=== PATIENT | female | born 1945 | race Caucasian/White ===

== ENCOUNTER 2020-10-02 17:33 | Inpatient (IN) ==
[2020-10-02] MEDS ORDERED: NS 0.9% 1000 ml BAG 1,000 ML IV ONE (17:59)
[2020-10-02 18:33] LABS: ABS Eosinophils 0.1 10^3/ul (0-0.6); ABS Lymphocytes 0.7 10^3/ul (1.0-4.8); ABS Monocytes 0.1 10^3/ul (0-0.8); ABS Neutrophils 12.9 10^3/ul (1.5-7.7); Eosinophil % 0.5 %; Hematocrit 36 % (35-47); Mean Corpuscular HGB Conc 34 g/dL (31-36); Mean Corpuscular Hemoglobin 29 pg (27-31); Mean Corpuscular Volume 85 fL (80-97); Mean Platelet Volume 6.6 fL (7.4-10.4); Platelet Count 431 10^3/uL (150-450); Red Blood Count 4.21 10^6 /uL (3.70-4.87); Red Cell Distribution Width 15 % (10-15); White Blood Count 13.8 10^3/uL (3.5-10.8)
[2020-10-02 18:40] LABS: INR 1.34 (0.82-1.09)
[2020-10-02 18:43] LABS: Albumin 2.9 g/dL (3.2-5.2); Albumin/Globulin Ratio 0.8 (1-3); C Reactive Protein 149.44 mg/L (<8.01); Calcium 8.5 mg/dL (8.6-10.3); EGFR African American 102.3 (>60); EGFR Non-African American 84.6 (>60); Globulin 3.6 g/dL (2-4); Potassium 3.7 mmol/L (3.5-5.0); Total Bilirubin 0.9 mg/dL (0.2-1.0); Total Protein 6.5 g/dL (6.4-8.9)
[2020-10-02] MEDS ORDERED: cefTRIAXone 2 GM ADDV.VIAL 2 GM in NS 0.9% 100 ml BAG 100 ML IVPB ONE (19:54)
[2020-10-02] MEDS ORDERED: Azithromycin 500 mg/250 ml NS 500 MG/250 ML BAG IVPB ONE (19:54)
[2020-10-02] MEDS ORDERED: Al Hydrox/Mg Hydrox/Simet LIQ 30 ML UDC PO PRN (20:46)
[2020-10-02] MEDS ORDERED: chlorproMAZINE 50 mg TAB (NF strength) PO PRN (20:51)
[2020-10-03] MEDS: Enoxaparin 40 MG/0.4 ML SYR SUBCUT SCH ×2 (00:29→20:14)
[2020-10-03] MEDS: Ondansetron 4 mg VIAL 2 MG/ML 2 ml VIAL IV PRN (01:02)
[2020-10-03] MEDS: guaiFENesin/CODIENE 100mg/10mg 5 ML UDC PO PRN (01:04)
[2020-10-03] MEDS: DOXYcycline 100 MG in NS 0.9% 250 ml 250 ML IVPB SCH ×2 (01:04→14:14)
[2020-10-03 01:13] LABS: Urine Appearance Clear; Urine Bilirubin Negative (Negative); Urine Blood 1+ (Negative); Urine Color Yellow; Urine Glucose Negative (Negative); Urine Ketones Negative (Negative); Urine Nitrite Negative (Negative); Urine Protein Negative (Negative); Urine Specific Gravity 1.014 (1.002-1.030); Urine Urobilinogen Positive (Negative)
[2020-10-03 01:16] LABS: Urine Bacteria Absent (Absent); Urine Red Blood Cell Trace(0-2/hpf) (Absent); Urine Squamous Epithelial Cell Present (Absent); Urine White Blood Cell Trace(0-5/hpf) (Absent)
[2020-10-03] MEDS ORDERED: Polyethylene Glycol 3350 17 GM PACKET PO PRN (04:42)
[2020-10-03] MEDS ORDERED: Magnesium Hydroxide LIQ 30 ML UDC PO PRN (04:42)
[2020-10-03 05:03] LABS: ABS Eosinophils 0.1 10^3/ul (0-0.6); ABS Lymphocytes 0.7 10^3/ul (1.0-4.8); ABS Monocytes 0.1 10^3/ul (0-0.8); ABS Neutrophils 13.9 10^3/ul (1.5-7.7); Eosinophil % 0.4 %; Hematocrit 33 % (35-47); Hemoglobin 11.1 g/dL (12.0-16.0); Lymphocyte % 4.6 %; Mean Corpuscular HGB Conc 34 g/dL (31-36); Mean Corpuscular Hemoglobin 29 pg (27-31); Mean Corpuscular Volume 85 fL (80-97); Mean Platelet Volume 6.8 fL (7.4-10.4); Platelet Count 368 10^3/uL (150-450); Red Blood Count 3.91 10^6 /uL (3.70-4.87); Red Cell Distribution Width 14 % (10-15); White Blood Count 14.8 10^3/uL (3.5-10.8)
[2020-10-03 05:23] LABS: Albumin 2.7 g/dL (3.2-5.2); Albumin/Globulin Ratio 0.8 (1-3); Calcium 8.2 mg/dL (8.6-10.3); EGFR African American 109.8 (>60); EGFR Non-African American 90.7 (>60); Globulin 3.2 g/dL (2-4); Potassium 3.4 mmol/L (3.5-5.0); Total Bilirubin 0.7 mg/dL (0.2-1.0); Total Protein 5.9 g/dL (6.4-8.9)
[2020-10-03] MEDS: Cholecalciferol (VIT D3) 1,000 unit TAB PO SCH (08:14)
[2020-10-03] MEDS: Senna TAB 8.6 mg TAB PO PRN (08:15)
[2020-10-03 09:27] LABS: Magnesium 1.4 mg/dL (1.9-2.7)
[2020-10-03] MEDS ORDERED: Magnesium Sulf 4 GM/100 ML IV 4,000 MG/100 ML BAG IVPB ONE (09:31)
[2020-10-03] MEDS: Budesonide NEB 0.5 MG/2 ML NEB.SOLN INH SCH (19:06)
[2020-10-03] MEDS: cefTRIAXone 2 GM ADDV.VIAL 2 GM in NS 0.9% 100 ml BAG 100 ML IV SCH (20:29)
[2020-10-03] MEDS ORDERED: cefTRIAXone 1 gm/50 mL NS BAG 1 GM/50 ML BAG IVPB SCH (21:00)
[2020-10-04] MEDS: guaiFENesin/CODIENE 100mg/10mg 5 ML UDC PO PRN ×2 (00:26→09:31)
[2020-10-04] MEDS: DOXYcycline 100 MG in NS 0.9% 250 ml 250 ML IVPB SCH ×2 (00:26→13:01)
[2020-10-04 06:19] LABS: ABS Eosinophils 0.2 10^3/ul (0-0.6); ABS Lymphocytes 0.4 10^3/ul (1.0-4.8); ABS Monocytes 0.1 10^3/ul (0-0.8); ABS Neutrophils 12.2 10^3/ul (1.5-7.7); Eosinophil % 1.6 %; Hematocrit 32 % (35-47); Hemoglobin 10.5 g/dL (12.0-16.0); Lymphocyte % 3.3 %; Mean Corpuscular HGB Conc 33 g/dL (31-36); Mean Corpuscular Hemoglobin 28 pg (27-31); Mean Corpuscular Volume 86 fL (80-97); Mean Platelet Volume 6.8 fL (7.4-10.4); Platelet Count 328 10^3/uL (150-450); Red Cell Distribution Width 15 % (10-15)
[2020-10-04 06:36] LABS: Calcium 8.4 mg/dL (8.6-10.3); EGFR African American 120.6 (>60); EGFR Non-African American 99.6 (>60); Magnesium 2.1 mg/dL (1.9-2.7); Potassium 3.5 mmol/L (3.5-5.0)
[2020-10-04] MEDS: Budesonide NEB 0.5 MG/2 ML NEB.SOLN INH SCH ×2 (07:26→19:19)
[2020-10-04] MEDS: Senna TAB 8.6 mg TAB PO PRN (09:32)
[2020-10-04] MEDS: Cholecalciferol (VIT D3) 1,000 unit TAB PO SCH (09:32)
[2020-10-04] MEDS ORDERED: guaiFENesin/CODIENE 100mg/10mg 5 ML UDC PO PRN (12:06)
[2020-10-04] MEDS: Enoxaparin 40 MG/0.4 ML SYR SUBCUT SCH (21:19)
[2020-10-04] MEDS: cefTRIAXone 2 GM ADDV.VIAL 2 GM in NS 0.9% 100 ml BAG 100 ML IV SCH (21:20)
[2020-10-05] MEDS: DOXYcycline 100 MG in NS 0.9% 250 ml 250 ML IVPB SCH ×2 (00:16→11:47)
[2020-10-05 06:10] LABS: ABS Eosinophils 0.2 10^3/ul (0-0.6); ABS Lymphocytes 0.4 10^3/ul (1.0-4.8); ABS Neutrophils 7.4 10^3/ul (1.5-7.7); Eosinophil % 2.8 %; Hematocrit 31 % (35-47); Hemoglobin 10.3 g/dL (12.0-16.0); Lymphocyte % 5.3 %; Mean Corpuscular HGB Conc 34 g/dL (31-36); Mean Corpuscular Hemoglobin 29 pg (27-31); Mean Corpuscular Volume 85 fL (80-97); Mean Platelet Volume 6.5 fL (7.4-10.4); Platelet Count 262 10^3/uL (150-450); Red Blood Count 3.57 10^6 /uL (3.70-4.87); Red Cell Distribution Width 15 % (10-15); White Blood Count 8.1 10^3/uL (3.5-10.8)
[2020-10-05 06:28] LABS: Albumin 2.7 g/dL (3.2-5.2); Albumin/Globulin Ratio 0.8 (1-3); C Reactive Protein 315.07 mg/L (<8.01); Calcium 8.5 mg/dL (8.6-10.3); EGFR African American 125.5 (>60); EGFR Non-African American 103.7 (>60); Globulin 3.6 g/dL (2-4); Potassium 3.6 mmol/L (3.5-5.0); Total Bilirubin 0.7 mg/dL (0.2-1.0); Total Protein 6.3 g/dL (6.4-8.9)
[2020-10-05] MEDS: Cholecalciferol (VIT D3) 1,000 unit TAB PO SCH (09:18)
[2020-10-05] MEDS: Budesonide NEB 0.5 MG/2 ML NEB.SOLN INH SCH ×2 (09:53→20:23)
[2020-10-05] MEDS: methylPREDNISolone SOD 40 mg/ml 1 ml VIAL IV SCH ×2 (10:35→22:31)
[2020-10-05] MEDS: Cefepime 2 GM in Dextrose 2 GM/50 ML BAG IV SCH ×2 (10:35→22:31)
[2020-10-05] MEDS: Enoxaparin 40 MG/0.4 ML SYR SUBCUT SCH (22:30)
[2020-10-06] MEDS: DOXYcycline 100 MG in NS 0.9% 250 ml 250 ML IVPB SCH ×2 (00:36→13:06)
[2020-10-06 06:53] LABS: ABS Lymphocytes 0.3 10^3/ul (1.0-4.8); ABS Neutrophils 3.8 10^3/ul (1.5-7.7); Eosinophil % 0.1 %; Hematocrit 30 % (35-47); Hemoglobin 10.1 g/dL (12.0-16.0); Lymphocyte % 7.8 %; Mean Corpuscular HGB Conc 34 g/dL (31-36); Mean Corpuscular Hemoglobin 29 pg (27-31); Mean Corpuscular Volume 85 fL (80-97); Mean Platelet Volume 6.6 fL (7.4-10.4); Platelet Count 206 10^3/uL (150-450); Red Blood Count 3.51 10^6 /uL (3.70-4.87); Red Cell Distribution Width 15 % (10-15); White Blood Count 4.2 10^3/uL (3.5-10.8)
[2020-10-06] MEDS: Budesonide NEB 0.5 MG/2 ML NEB.SOLN INH SCH ×2 (07:13→19:20)
[2020-10-06 07:14] LABS: Calcium 8.9 mg/dL (8.6-10.3); Potassium 3.7 mmol/L (3.5-5.0)
[2020-10-06 07:20] LABS: C Reactive Protein 284.38 mg/L (<8.01); EGFR African American 130.7 (>60)
[2020-10-06] MEDS: Cholecalciferol (VIT D3) 1,000 unit TAB PO SCH (09:58)
[2020-10-06] MEDS: Cefepime 2 GM in Dextrose 2 GM/50 ML BAG IV SCH ×2 (12:09→22:04)
[2020-10-06] MEDS: methylPREDNISolone SOD 40 mg/ml 1 ml VIAL IV SCH ×2 (12:10→22:04)
[2020-10-06] MEDS: Enoxaparin 40 MG/0.4 ML SYR SUBCUT SCH (22:58)
[2020-10-07] MEDS: DOXYcycline 100 MG in NS 0.9% 250 ml 250 ML IVPB SCH ×2 (00:42→13:26)
[2020-10-07] MEDS: Budesonide NEB 0.5 MG/2 ML NEB.SOLN INH SCH ×2 (08:27→20:27)
[2020-10-07] MEDS ORDERED: Lidocaine PATCH 5% PATCH TRANSDERM PRN (08:44)
[2020-10-07] MEDS: Cholecalciferol (VIT D3) 1,000 unit TAB PO SCH (10:40)
[2020-10-07] MEDS: methylPREDNISolone SOD 40 mg/ml 1 ml VIAL IV SCH ×2 (11:50→23:22)
[2020-10-07] MEDS: Cefepime 2 GM in Dextrose 2 GM/50 ML BAG IV SCH ×2 (11:50→23:22)
[2020-10-07] MEDS ORDERED: SULFAMETHOXAZOLE IVPB SCH (18:00)
[2020-10-07] MEDS ORDERED: D5W IVPB SCH (18:00)
[2020-10-07] MEDS ORDERED: TRIMETH IVPB SCH (18:00)
[2020-10-07] MEDS: SULFAMETHOXAZOLE IVPB SCH (21:07)
[2020-10-07] MEDS: TRIMETH IVPB SCH (21:07)
[2020-10-07] MEDS: D5W IVPB SCH (21:07)
[2020-10-07] MEDS: Saline NASAL SPRAY 0.65% BTL BOTH NARES PRN (21:14)
[2020-10-07] MEDS: Enoxaparin 40 MG/0.4 ML SYR SUBCUT SCH (21:16)
[2020-10-07] MEDS: Lidocaine Patch REMOVE PATCH PATCH OFF SCH (21:32)
[2020-10-08] MEDS: D5W IVPB SCH ×4 (02:24→23:17)
[2020-10-08] MEDS: SULFAMETHOXAZOLE IVPB SCH ×4 (02:24→23:17)
[2020-10-08] MEDS: TRIMETH IVPB SCH ×4 (02:24→23:17)
[2020-10-08 06:28] LABS: Hematocrit 30 % (35-47); Hemoglobin 10.1 g/dL (12.0-16.0); Mean Corpuscular HGB Conc 34 g/dL (31-36); Mean Corpuscular Hemoglobin 29 pg (27-31); Mean Corpuscular Volume 85 fL (80-97); Mean Platelet Volume 6.9 fL (7.4-10.4); Platelet Count 127 10^3/uL (150-450); Red Blood Count 3.55 10^6 /uL (3.70-4.87); Red Cell Distribution Width 15 % (10-15); White Blood Count 4.2 10^3/uL (3.5-10.8)
[2020-10-08 06:46] LABS: Calcium 8.4 mg/dL (8.6-10.3); EGFR African American 120.6 (>60); EGFR Non-African American 99.6 (>60); Potassium 3.4 mmol/L (3.5-5.0)
[2020-10-08 07:25] LABS: ABS Lymphocytes 0.3 10^3/ul (1.0-4.8); ABS Neutrophils 3.8 10^3/ul (1.5-7.7); Eosinophil % 0.3 %
[2020-10-08] MEDS: Budesonide NEB 0.5 MG/2 ML NEB.SOLN INH SCH ×2 (07:49→18:53)
[2020-10-08] MEDS: Saline NASAL SPRAY 0.65% BTL BOTH NARES PRN (08:55)
[2020-10-08] MEDS ORDERED: Phenol 1.4% Throat Spray 177 ml BTL MT PRN (09:33)
[2020-10-08] MEDS: Cholecalciferol (VIT D3) 1,000 unit TAB PO SCH (09:52)
[2020-10-08] MEDS: methylPREDNISolone SOD 40 mg/ml 1 ml VIAL IV SCH ×2 (12:11→23:17)
[2020-10-08] MEDS: Cefepime 2 GM in Dextrose 2 GM/50 ML BAG IV SCH ×2 (12:16→23:47)
[2020-10-08] MEDS ORDERED: Potassium Chlor 20 meq TAB.ER PO ONE (13:33)
[2020-10-08] MEDS ORDERED: Furosemide 40 mg/4 ml IV VIAL IV SLOW PU ONE (13:40)
[2020-10-08] MEDS: KCL 20 MEQ/100 ML IVPREMIX 20 MEQ/100 ML BAG IV SCH ×2 (14:11→17:10)
[2020-10-08] MEDS ORDERED: Potassium Chloride LIQUID 20 MEQ/15 ML LIQUID PO ONE (15:20)
[2020-10-08 18:31] LABS: Calcium 8.2 mg/dL (8.6-10.3); EGFR African American 88.7 (>60); EGFR Non-African American 73.3 (>60); Magnesium 1.6 mg/dL (1.9-2.7); Phosphorus 3.1 mg/dL (2.5-5.0)
[2020-10-08] MEDS ORDERED: Magnesium Sulf 4 GM/100 ML IV 4,000 MG/100 ML BAG IVPB ONE (18:56)
[2020-10-08] MEDS: Morphine 2 MG/ML SYRINGE IV PRN (19:45)
[2020-10-08] MEDS ORDERED: Acetaminophen IV 1 GM/100ML 100 ML IV PRN (20:00)
[2020-10-08] MEDS: Lidocaine Patch REMOVE PATCH PATCH OFF SCH (21:37)
[2020-10-08] MEDS: Enoxaparin 40 MG/0.4 ML SYR SUBCUT SCH (21:40)
[2020-10-08] MEDS ORDERED: metroNIDAZOLE IV 500 MG/100ML 500 MG/100 ML BAG IVPB ONE (22:12)
[2020-10-09] MEDS: Ondansetron 4 mg VIAL 2 MG/ML 2 ml VIAL IV PRN ×3 (00:32→17:46)
[2020-10-09] MEDS: Morphine 2 MG/ML SYRINGE IV PRN ×6 (01:04→22:35)
[2020-10-09 04:47] LABS: Hematocrit 29 % (35-47); Hemoglobin 9.6 g/dL (12.0-16.0); Mean Corpuscular HGB Conc 34 g/dL (31-36); Mean Corpuscular Hemoglobin 28 pg (27-31); Mean Corpuscular Volume 85 fL (80-97); Mean Platelet Volume 7.1 fL (7.4-10.4); Platelet Count 109 10^3/uL (150-450); Red Blood Count 3.39 10^6 /uL (3.70-4.87); Red Cell Distribution Width 15 % (10-15); White Blood Count 4.7 10^3/uL (3.5-10.8)
[2020-10-09 05:10] LABS: Calcium 8.1 mg/dL (8.6-10.3); EGFR African American 69.6 (>60); EGFR Non-African American 57.5 (>60); Magnesium 2.5 mg/dL (1.9-2.7); Phosphorus 2.9 mg/dL (2.5-5.0); Potassium 4.2 mmol/L (3.5-5.0)
[2020-10-09] MEDS: D5W IVPB SCH ×4 (05:14→23:47)
[2020-10-09] MEDS: SULFAMETHOXAZOLE IVPB SCH ×4 (05:14→23:47)
[2020-10-09] MEDS: TRIMETH IVPB SCH ×4 (05:14→23:47)
[2020-10-09 05:50] LABS: ABS Lymphocytes 0.4 10^3/ul (1.0-4.8); ABS Monocytes 0.2 10^3/ul (0-0.8); ABS Neutrophils 4.2 10^3/ul (1.5-7.7); Eosinophil % 0.1 %; Lymphocyte % 8.3 %
[2020-10-09] MEDS: Lidocaine Patch REMOVE PATCH PATCH OFF SCH ×2 (06:28→20:49)
[2020-10-09] MEDS: Budesonide NEB 0.5 MG/2 ML NEB.SOLN INH SCH ×2 (07:26→19:00)
[2020-10-09] MEDS ORDERED: Albuterol/Ipratropium NEB.SOL (2.5/0.5 MG) 3 ML NEB.SOLN ONE (07:32)
[2020-10-09] MEDS: metroNIDAZOLE IV 500 MG/100ML 100 ML IVPB SCH ×3 (07:57→22:28)
[2020-10-09] MEDS: Cholecalciferol (VIT D3) 1,000 unit TAB PO SCH (08:11)
[2020-10-09] MEDS: methylPREDNISolone SOD 40 mg/ml 1 ml VIAL IV SCH ×2 (11:01→23:47)
[2020-10-09] MEDS: Cefepime 2 GM in Dextrose 2 GM/50 ML BAG IV SCH ×2 (11:03→22:37)
[2020-10-09] MEDS: Enoxaparin 40 MG/0.4 ML SYR SUBCUT SCH (20:44)
[2020-10-10] MEDS: SULFAMETHOXAZOLE IVPB SCH ×3 (05:20→17:15)
[2020-10-10] MEDS: TRIMETH IVPB SCH ×3 (05:20→17:15)
[2020-10-10] MEDS: D5W IVPB SCH ×3 (05:20→17:15)
[2020-10-10] MEDS: metroNIDAZOLE IV 500 MG/100ML 100 ML IVPB SCH ×2 (06:28→14:44)
[2020-10-10] MEDS: Budesonide NEB 0.5 MG/2 ML NEB.SOLN INH SCH ×2 (07:17→19:07)
[2020-10-10] MEDS: Ondansetron 4 mg VIAL 2 MG/ML 2 ml VIAL IV PRN ×3 (08:22→23:40)
[2020-10-10] MEDS ORDERED: Furosemide 40 mg/4 ml IV VIAL IV SLOW PU ONE (08:29)
[2020-10-10] MEDS ORDERED: Furosemide 40 mg/4 ml IV VIAL ONE (08:35)
[2020-10-10 08:59] LABS: Hematocrit 28 % (35-47); Hemoglobin 9.8 g/dL (12.0-16.0); Mean Corpuscular HGB Conc 34 g/dL (31-36); Mean Corpuscular Hemoglobin 29 pg (27-31); Mean Corpuscular Volume 84 fL (80-97); Mean Platelet Volume 7.5 fL (7.4-10.4); Platelet Count 79 10^3/uL (150-450); Red Cell Distribution Width 15 % (10-15); White Blood Count 3.3 10^3/uL (3.5-10.8)
[2020-10-10 09:08] LABS: Calcium 8.2 mg/dL (8.6-10.3); EGFR Non-African American 49.6 (>60); Phosphorus 3.9 mg/dL (2.5-5.0); Potassium 4.6 mmol/L (3.5-5.0)
[2020-10-10] MEDS: Cholecalciferol (VIT D3) 1,000 unit TAB PO SCH (09:14)
[2020-10-10] MEDS: Morphine 2 MG/ML SYRINGE IV PRN ×5 (09:24→18:46)
[2020-10-10] MEDS: methylPREDNISolone SOD 40 mg/ml 1 ml VIAL IV SCH (11:05)
[2020-10-10] MEDS: Cefepime 2 GM in Dextrose 2 GM/50 ML BAG IV SCH (11:05)
[2020-10-10] MEDS: Enoxaparin 40 MG/0.4 ML SYR SUBCUT SCH (21:00)
[2020-10-10] MEDS: Lidocaine Patch REMOVE PATCH PATCH OFF SCH (21:08)
[2020-10-11] MEDS: metroNIDAZOLE IV 500 MG/100ML 100 ML IVPB SCH ×2 (00:30→05:58)
[2020-10-11] MEDS: methylPREDNISolone SOD 40 mg/ml 1 ml VIAL IV SCH (00:32)
[2020-10-11] MEDS: Cefepime 2 GM in Dextrose 2 GM/50 ML BAG IV SCH (00:38)
[2020-10-11] MEDS: TRIMETH IVPB SCH ×2 (01:23→05:56)
[2020-10-11] MEDS: D5W IVPB SCH ×2 (01:23→05:56)
[2020-10-11] MEDS: SULFAMETHOXAZOLE IVPB SCH ×2 (01:23→05:56)
[2020-10-11] MEDS: Ondansetron 4 mg VIAL 2 MG/ML 2 ml VIAL IV PRN ×2 (04:00→08:08)
[2020-10-11] MEDS: Morphine 2 MG/ML SYRINGE IV PRN ×3 (04:00→08:07)
[2020-10-11] MEDS: Saline NASAL SPRAY 0.65% BTL BOTH NARES PRN (05:19)
[2020-10-11 05:29] VITALS: BP 132/71
[2020-10-11] MEDS: Budesonide NEB 0.5 MG/2 ML NEB.SOLN INH SCH (07:55)
[2020-10-11] MEDS: Cholecalciferol (VIT D3) 1,000 unit TAB PO SCH (08:13)
[2020-10-11] MEDS ORDERED: Lorazepam PYXIS KEY PRN (08:48)
[2020-10-11] MEDS ORDERED: Morphine 10 MG/ML VIAL (1 ml) IV ONE ×2 (08:48→11:00)
[2020-10-11] MEDS ORDERED: Atropine 1% (ORAL/SL) 15 ML BTL SL PRN (08:52)
[2020-10-11] MEDS ORDERED: Morphine PCA ADULT 5 MG/ML 30 ML PCA SCH (09:00)
[2020-10-11] MEDS: LORazepam 2 mg VIAL 1 ml IV PUSH PRN ×7 (09:18→22:25)
[2020-10-11] MEDS ORDERED: Morphine 2 MG/ML SYRINGE ONE (10:24)
[2020-10-11] MEDS ORDERED: Morphine 2 MG/ML SYRINGE IV ONE (11:00)
[2020-10-11] MEDS: Lidocaine Patch REMOVE PATCH PATCH OFF SCH (20:41)
[2020-10-12] MEDS: LORazepam 2 mg VIAL 1 ml IV PUSH PRN (00:21)
== END 2020-10-12 02:23 | disposition expired | DRG 871 ==
LOC: ED 17:33 → MEDTELE 22:13 → ICU 10-08 12:42
PROVIDERS: ADMIT Hospitalist; ATTEND Internal Medicine